=== PATIENT | male | born 1950 | race Caucasian/White ===

== ENCOUNTER 2020-10-13 06:24 | Emergency (ER) | payer MEDICARE ==
[~2020-10-13] VITALS: Ht 177.8 cm; Wt 103.6 kg
--- NOTE | 2020-10-13 06:41 | NUR ---
Patient BIBA c/o right shoulder pain with numbness in his right hand. Pain radiates through to his right chest. Patient states the pain woke him up around 0300 but became worse around 0500. [employer] admin 100mcg Fentanyl, 4mg Zofran, and 5mg Morphine. Patient states "the meds they gave me helped the rest of my body feel good but not my shoulder." Patient states the pain is slightly relieved with a lot of pressure to the area. Patient is in obvious discomfort. Respirations even and unlabored.
--- NOTE | 2020-10-13 06:47 | NUR ---
Patient denies trauma. No hx of same.
[2020-10-13] MEDS ORDERED: KETOROLAC 30 MG/1 ML ONE (06:52)
[2020-10-13] MEDS ORDERED: METHOCARBAMOL 750 MG TABLET ONE (06:52)
--- NOTE | 2020-10-13 06:59 | NUR ---
Report given to ZEENAT Walker and ZEENAT Velasquez. Patient care transferred.
[2020-10-13] MEDS ORDERED: SODIUM CHLORIDE FLUSH 10ML SYR IVF ONE (07:00)
[2020-10-13] MEDS ORDERED: METHOCARBAMOL 750 MG TABLET PO ONE (07:00)
[2020-10-13] MEDS ORDERED: KETOROLAC 30 MG/1 ML IVPush ONE (07:00)
--- NOTE | 2020-10-13 07:01 | NUR ---
assumed care of patient, report recieved from noc rn, pt sitting in bed vss, at bedside.
[2020-10-13 07:04] LABS: BASOPHILS % (AUTO) 1 % (0-1); EOSINOPHILS % (AUTO) 3 % (1-7); LYMPHOCYTES % (AUTO) 13 % (22-44); MD NO; MEAN CORPUSCULAR HEMOGLOBIN 32.4 pg (27.5-34.5); MEAN CORPUSCULAR HGB CONC 33.5 g/dL (33.2-36.2); MEAN PLATELET VOLUME 8.2 fL (7.4-10.4); MONOCYTES % (AUTO) 7 % (2-9); NEUTROPHILS % (AUTO) 75 % (42-75); PLATELET COUNT 232 x10^3/uL (130-400); RED BLOOD COUNT 4.63 x10^6/uL (4.38-5.82); RED CELL DISTRIBUTION WIDTH 13.8 % (9.4-14.8)
[2020-10-13 07:15] LABS: ALBUMIN 3.5 g/dL (3.4-5.0); ANION GAP 5 mmol/L (5-15); CALCIUM 8.6 mg/dL (8.5-10.1); CHLORIDE 110 mmol/L (98-107)
[2020-10-13 07:18] LABS: ALANINE AMINOTRANSFERASE 20 U/L (12-78); ALKALINE PHOSPHATASE 59 U/L (45-117); BILIRUBIN,TOTAL 0.4 mg/dL (0.2-1.0); CREATININE 0.93 mg/dL (0.7-1.3); TOTAL PROTEIN 6.6 g/dL (6.4-8.2); TROPONIN I < 0.015 ng/mL (0.000-0.045)
[2020-10-13 08:32] VITALS: BP 146/87
== END 2020-10-13 08:47 | disposition home or self-care (01) ==
LOC: ED 07:16
DX: M54.12 Radiculopathy, cervical region (principal); R94.31 Abnormal electrocardiogram [ECG] [EKG]; G89.29 Other chronic pain; R07.9 Chest pain, unspecified; J45.909 Unspecified asthma, uncomplicated; I10 Essential (primary) hypertension
CPT/HCPCS: 36415; 71045; 72050; 80053; 83690; 84484; 85025; 85379; 93005; 96374; 99285; J1885; J7512